=== PATIENT | female | born 1985 | race Caucasian/White ===

== ENCOUNTER 2018-10-08 18:55 | Emergency (ER) | payer MEDICAID ==
[2018-10-08] MEDS ORDERED: Ondansetron 4 MG Tab PO ONE (19:07)
[2018-10-08] MEDS ORDERED: Ondansetron 4 MG Tab.DIS PO ONE (19:11)
--- NOTE | 2018-10-08 19:11 | EDM.PDOC ---
ED HPI GENERAL MEDICAL PROBLEM - General Chief Complaint: Head Injury Stated Complaint: HEAD INJURY Time Seen by Provider: 10/08/18 19:06 - History of Present Illness INITIAL COMMENTS - FREE TEXT/NARRATIVE: HISTORY AND PHYSICAL: History of present illness: Patient is a 33-year-old female presents status post head injury when she fell while ice skating striking her head on the ice was no loss consciousness since then she has had headache and mild nausea there's been no vomiting she denies visual disturbance numbness weakness or any other complaints Review of systems: As per history of present illness and below otherwise all systems reviewed and negative. Past medical history: As per history of present illness and as reviewed below otherwise noncontributory. Surgical history: As per history of present illness and as reviewed below otherwise noncontributory. Social history: No reported history of drug or alcohol abuse. Family history: As per history of present illness and as reviewed below otherwise noncontributory. Physical exam: HEENT: Atraumatic, normocephalic, pupils reactive, negative for conjunctival pallor or scleral icterus, mucous membranes moist, throat clear, neck supple, nontender, trachea midline. Lungs: Clear to auscultation, breath sounds equal bilaterally, chest nontender. Heart: S1S2, regular, negative for clicks, rubs, or JVD. Abdomen: Soft, nondistended, nontender. Negative for masses or hepatosplenomegaly. Negative for costovertebral tenderness. Pelvis: Stable nontender. Genitourinary: Deferred. Rectal: Deferred. Extremities: Atraumatic, negative for cords or calf pain. Neurovascular unremarkable. Neuro: Awake, alert, oriented. Cranial nerves II through XII unremarkable. Cerebellum unremarkable. Motor and sensory unremarkable throughout. Exam nonfocal. Diagnostics: CT brain Therapeutics: Zofran 4 mg ODT Impression: #1 cerebral concussion Definitive disposition and diagnosis as appropriate pending reevaluation and review of above. ED ROS GENERAL - Review of Systems Review Of Systems: ROS reveals no pertinent complaints other than HPI. ED EXAM, HEAD INJURY - Physical Exam Exam: See Below (See dictation) Course - Orders/Labs/Meds Orders: Active Orders 24 hr Category Date Time Status Head wo Cont [CT] Stat Exams 10/08/18 19:07 Ordered Ondansetron [Zofran] Med 10/08/18 19:07 Once 4 mg PO ONETIME ONE Departure - Departure Time of Disposition: 19:10 Disposition: Home, Self-Care 01 Condition: Good Clinical Impression: Concussion injury of brain - Discharge Information Referrals: PCP,None [Primary Care Provider] - Additional Instructions: The following information is given to patients seen in the emergency department who are being discharged to home. This information is to outline your options for follow-up care. We provide all patients seen in our emergency department with a follow-up referral. The need for follow-up, as well as the timing and circumstances, are variable depending upon the specifics of your emergency department visit. If you don't have a primary care physician on staff, we will provide you with a referral. We always advise you to contact your personal physician following an emergency department visit to inform them of the circumstance of the visit and for follow-up with them and/or the need for any referrals to a consulting specialist. The emergency department will also refer you to a specialist when appropriate. This referral assures that you have the opportunity for followup care with a specialist. All of these measure are taken in an effort to provide you with optimal care, which includes your followup. Under all circumstances we always encourage you to contact your private physician who remains a resource for coordinating your care. When calling for followup care, please make the office aware that this follow-up is from your recent emergency room visit. If for any reason you are refused follow-up, please contact the [facility] emergency department at and asked to speak to the emergency department charge nurse. [facility] [address] [place] [id number] Follow-up primary medical doctor and/or clinic above as discussed concussion instructions as discussed Tylenol as directed and return as needed as discussed - My Orders Last 24 Hours: My Active Orders 10/08/18 19:07 Head wo Cont [CT] Stat Ondansetron [Zofran] 4 mg PO ONETIME ONE - Assessment/Plan Last 24 Hours: My Active Orders 10/08/18 19:07 Head wo Cont [CT] Stat Ondansetron [Zofran] 4 mg PO ONETIME ONE
--- NOTE | 2018-10-08 20:29 | CT ---
HISTORY: Fall. Striking posterior head. COMPARISON: None. TECHNIQUE: Noncontrast axial images were obtained through the brain. FINDINGS: Viramontes-white matter differentiation is preserved. No evidence for acute intracranial hemorrhage or infarction. No midline shift or mass effect. The ventricles are nondilated and symmetric. No abnormal intra or extra-axial fluid collection. The bony calvaria are intact. Visualized paranasal sinuses and mastoid air cells are clear. IMPRESSION: No acute intracranial pathology. Please note that all CT scans at this facility use dose modulation, iterative reconstruction, and/or weight-based dosing when appropriate to reduce radiation dose to as low as reasonably achievable. Dictated by Maegan Gay MD @ Oct 08 2018 8:24PM Signed by Dr. Maegan Gay @ Oct 08 2018 8:27PM
== END 2018-10-08 20:44 | disposition home or self-care (01) ==
LOC: MW.ED 18:55
DX: S06.0X0A Concussion without loss of consciousness, initial encounter (principal); W00.0XXA Fall on same level due to ice and snow, initial encounter; Y93.21 Activity, ice skating
CPT/HCPCS: 70450; 99283; A9270

== ENCOUNTER 2018-12-04 16:28 | Emergency (ER) | payer MEDICAID ==
--- NOTE | 2018-12-04 16:44 | EDM.PDOC ---
ED HPI GENERAL MEDICAL PROBLEM - General Chief Complaint: Neck Problem Stated Complaint: LEFT SHOULDER INJURY Time Seen by Provider: 12/04/18 16:44 Source of Information: Reports: Patient History Limitations: Reports: No Limitations - History of Present Illness INITIAL COMMENTS - FREE TEXT/NARRATIVE: HISTORY AND PHYSICAL: History of present illness: Patient is a 33-year-old female presents to the ED with complaint of left shoulder pain. She states she has a bulging disc in her neck and which occasionally causes a pain in to her left shoulder. She occasionally has a tingling sensation in to her left hand. She states she has gotten a shot in the past which has helped. She denies recent injury or trauma, chest pain, or SOB and is otherwise in her usual state of good health. Review of systems: As per history of present illness and below otherwise all systems reviewed and negative. Past medical history: As per history of present illness and as reviewed below otherwise noncontributory. Surgical history: As per history of present illness and as reviewed below otherwise noncontributory. Social history: No reported history of drug or alcohol abuse. Family history: As per history of present illness and as reviewed below otherwise noncontributory. Physical exam: General: Patient sitting comfortably in no acute distress and nontoxic appearing HEENT: Atraumatic, normocephalic, pupils reactive, negative for conjunctival pallor or scleral icterus, mucous membranes moist, throat clear, neck supple, nontender, trachea midline. No meningeal signs. Lungs: Clear to auscultation, breath sounds equal bilaterally, chest nontender. Heart: S1S2, regular, negative for clicks, rubs, or overt murmur. Abdomen: Soft, nondistended, nontender. Negative for masses or hepatosplenomegaly. Negative for costovertebral tenderness. No rigidity, rebound , guarding. Pelvis: Stable nontender. Genitourinary: Deferred. Rectal: Deferred. Spine: No cervical tenderness to palpation. Extremities: Pain to palpation of the left, ROM limited due to pain. Atraumatic , negative for cords or calf pain. Neurovascular unremarkable. Neuro: Awake, alert, oriented. Cranial nerves II through XII unremarkable. Cerebellum unremarkable. Motor and sensory unremarkable throughout. Exam nonfocal. Notes: Diagnostics: None Therapeutics: 60mg Toradol IM 60mg Norflex IM Prescriptions: Impression: Shoulder pain Plan: 1. Take medication as instructed. Do not take flexeril while driving as it may make you drowsy 2. Follow up with primary care provider 3. Return to ED as needed as discussed Definitive disposition and diagnosis as appropriate pending reevaluation and review of above. neck/left shoulder Pain Score (Numeric/FACES): 8 - Related Data Allergies Allergy/AdvReac Type Severity Reaction Status Date / Time No Known Allergies Allergy Verified 12/04/18 16:39 Home Meds: Home Meds . [No Known Home Meds] 10/08/18 [History] Past Medical History - Past Health History Medical/Surgical History: Denies Medical/Surgical History HEENT History: Reports: None Cardiovascular History: Reports: None Respiratory History: Reports: None Gastrointestinal History: Reports: None Genitourinary History: Reports: None [employer] History: Reports: Musculoskeletal History: Reports: Neck Pain, Chronic Neurological History: Reports: None Psychiatric History: Reports: None Endocrine/Metabolic History: Reports: None Hematologic History: Reports: None Immunologic History: Reports: None Oncologic (Cancer) History: Reports: None Dermatologic History: Reports: None - Infectious Disease History Infectious Disease History: Reports: Chicken Pox - Past Surgical History Head Surgeries/Procedures: Reports: None Social & Family History - Family History Family Medical History: Noncontributory - Tobacco Use Smoking Status *Q: Never Smoker - Caffeine Use Caffeine Use: Reports: Coffee, Energy Drinks, Soda - Recreational Drug Use Recreational Drug Use: No ED ROS GENERAL - Review of Systems Review Of Systems: ROS reveals no pertinent complaints other than HPI. ED EXAM, UPPER BACK/NECK PAIN - Physical Exam Exam: See Below (see dictation) Course - Vital Signs Last Recorded V/S: Last Vital Signs Temp 98.1 F 12/04/18 16:31 Pulse 85 12/04/18 16:31 Resp 22 H 12/04/18 16:31 BP 116/78 12/04/18 16:31 Pulse Ox 99 12/04/18 16:31 - Orders/Labs/Meds Orders: Active Orders 24 hr Category Date Time Status Orphenadrine [Norflex] Med 12/04/18 17:00 Active 60 mg IM Q12H Medication Orders Orphenadrine Citrate (Norflex) 60 mg IM Q12H NICHOLE Last Admin: 12/04/18 17:12 Dose: 60 mg Meds: Medications Generic Name Dose Route Start Last Admin Trade Name Freq PRN Reason Stop Dose Admin Orphenadrine Citrate 60 mg 12/04/18 17:00 12/04/18 17:12 Norflex IM 60 mg Q12H NICHOLE Administration Discontinued Medications Generic Name Dose Route Start Last Admin Trade Name Freq PRN Reason Stop Dose Admin Ketorolac Tromethamine 60 mg 12/04/18 16:52 12/04/18 17:12 Toradol IM 12/04/18 16:53 60 mg ONETIME ONE Administration Ondansetron HCl 4 mg 12/04/18 17:07 12/04/18 17:11 Zofran Odt PO 12/04/18 17:08 4 mg ONETIME ONE Administration Ondansetron HCl 4 mg 12/04/18 17:07 12/04/18 17:12 Zofran Odt PO 12/04/18 17:08 Not Given ONETIME ONE Ondansetron HCl Confirm 12/04/18 17:08 12/04/18 17:12 Zofran Odt Administered 12/04/18 17:09 Not Given Dose 4 mg .ROUTE .STK-MED ONE Departure - Departure Time of Disposition: 17:17 Disposition: Home, Self-Care 01 Condition: Good Clinical Impression: Shoulder pain, left - Discharge Information Referrals: PCP,None [Primary Care Provider] - Forms: ED Department Discharge Additional Instructions: The following information is given to patients seen in the emergency department who are being discharged to home. This information is to outline your options for follow-up care. We provide all patients seen in our emergency department with a follow-up referral. The need for follow-up, as well as the timing and circumstances, are variable depending upon the specifics of your emergency department visit. If you don't have a primary care physician on staff, we will provide you with a referral. We always advise you to contact your personal physician following an emergency department visit to inform them of the circumstance of the visit and for follow-up with them and/or the need for any referrals to a consulting specialist. The emergency department will also refer you to a specialist when appropriate. This referral assures that you have the opportunity for follow-up care with a specialist. All of these measure are taken in an effort to provide you with optimal care, which includes your follow-up. Under all circumstances we always encourage you to contact your private physician who remains a resource for coordinating your care. When calling for follow-up care, please make the office aware that this follow-up is from your recent emergency room visit. If for any reason you are refused follow-up, please contact the [facility] Emergency Department at and asked to speak to the emergency department charge nurse. [facility] [address], [place] [id number] [facility] [address] [place] [address] 1. Take medication as instruced. Do not take flexeril while driving as it may make you drowsy 2. Follow up with primary care provider 3. Return to ED as needed as discussed - My Orders Last 24 Hours: My Active Orders 12/04/18 17:00 Orphenadrine [Norflex] 60 mg IM Q12H - Assessment/Plan Last 24 Hours: My Active Orders 12/04/18 17:00 Orphenadrine [Norflex] 60 mg IM Q12H
[2018-12-04] MEDS ORDERED: Ketorolac 60 MG/2 ML SDV IM ONE (16:52)
[2018-12-04] MEDS ORDERED: Ondansetron 4 MG Tab.DIS PO ONE ×2 (17:07)
[2018-12-04] MEDS ORDERED: Ondansetron 4 MG Tab.DIS ONE (17:08)
== END 2018-12-04 17:37 | disposition home or self-care (01) ==
LOC: MW.ED 16:28
DX: M25.512 Pain in left shoulder (principal)
CPT/HCPCS: 96372; 99283; A9270; J1885; J2360; 99282